=== PATIENT | male | born 2000 | race American Indian/Alaskan Native ===

== ENCOUNTER 2019-05-03 15:38 | Emergency (ER) | payer SELFPAY ==
--- NOTE | 2019-05-03 16:14 | Emergency Department Report ---
Blank Doc - Documentation Documentation: This is a 24-year-old male that presents with dizziness and tingling and numbn ess sensation to bilateral upper and lower ext. Stated had some chest pain prior to these symptoms. This initial assessment/diagnostic orders/clinical plan/treatment(s) is/are subject to change based on patient's health status, clinical progression and re- assessment by fellow clinical providers in the ED. Further treatment and workup at subsequent clinical providers discretion. Patient/guardians urged not to elope from the ED as their condition may be serious if not clinically assessed and managed. Initial orders include: 1- Patient sent to [facility] for further evaluation and treatment 2- labs 3- EKG 4- CXR
[2019-05-03 16:35] LABS: Basophils % (Auto) 0.6 % (0.0-1.8); Eosinophils # (Auto) 0.1 K/mm3 (0.0-0.4); Hematocrit 48.1 % (35.5-45.6); Hemoglobin 16.1 gm/dl (11.8-15.2); Lymphocytes # (Auto) 1.3 K/mm3 (1.2-5.4); Lymphocytes % (Auto) 21.5 % (13.4-35.0); Mean Corpuscular HGB Conc 34 % (32-34); Mean Corpuscular Volume 82 fl (84-94); Monocytes # (Auto) 0.5 K/mm3 (0.0-0.8); Monocytes % (Auto) 8.9 % (0.0-7.3); Platelet Count 203 K/mm3 (140-440); Red Blood Count 5.84 M/mm3 (3.65-5.03); Red Cell Distribution Width 15.2 % (13.2-15.2)
[2019-05-03 16:44] LABS: INR 1.11 (0.87-1.13); Partial Thromboplastin Time 25.1 Sec. (24.2-36.6)
[2019-05-03 16:51] LABS: BUN/Creatinine Ratio 8; Blood Urea Nitrogen 8 mg/dL (9-20); Calcium 9.8 mg/dL (8.4-10.2); Hemolysis Index 26
--- NOTE | 2019-05-03 17:15 | XRay Report ---
CHEST 2 VIEWS INDICATION / CLINICAL INFORMATION: Chest Pain. COMPARISON: None available. FINDINGS: SUPPORT DEVICES: None. HEART / MEDIASTINUM: No significant abnormality. LUNGS / PLEURA: No significant pulmonary or pleural abnormality. No pneumothorax. ADDITIONAL FINDINGS: No significant additional findings. IMPRESSION: 1. No acute findings. Signer Name: Elmer Robertson MD Signed: 05/03/2019 4:11 PM Workstation Name: [id number]
[2019-05-03] MEDS ORDERED: PEPCID PO ONE (17:37)
[2019-05-03] MEDS ORDERED: CARAFATE PO ONE (17:37)
[2019-05-03] MEDS ORDERED: NACL 0.9% 1000 ML 1,000 ML IV ONE (17:38)
--- NOTE | 2019-05-03 17:38 | Emergency Department Report ---
ED General Adult HPI - General Chief complaint: Neuro Symptoms/Deficit Stated complaint: POSS STROKE LIKE SYMPTOMS Time Seen by Provider: 05/03/19 16:12 Source: patient, RN notes reviewed Mode of arrival: Ambulatory Limitations: No Limitations - History of Present Illness Initial comments: This is a pleasant 19-year-old gentleman. The patient is not known to this provider previously. The patient states he does not have a primary care doctor, and he denies chronic medical conditions. The patient presents to the emergency room today with multiple complaints. First complaint is nonspecific electrical feeling. He describes a sensation of electricity on his anterior and bilateral chest," tingling an electricity", on his bilateral palms, and bilateral anterior tibial regions. This is an intermittent sensation, is now resolved, his pain was, and it does not have exacerbating or relieving factors. Second complaint is chest pressure. The chest pressure is central. It does not radiate to the back, arms or neck. There is no vomiting. There is no diaphoresis. There is no recent aspirin ingestion, and the patient indicates no pulmonary embolus or DVT risk factors. Family reports that they have no history of pulmonary embolism or DVT, or cardiac disease. The patient denies other complaints. On review of systems, he did endorse nonsp ecific shortness of breath, which he has difficulty describing. However, he specifically denied syncope, he denied exertional shortness of breath -: Sudden Location: chest, left, right, upper extremity, lower extremity Radiation: non-radiation, other Quality: other Consistency: other Improves with: other Worsens with: other Associated Symptoms: chest pain, shortness of breath, other - Related Data Previous Rx's Medication Instructions Recorded Last Taken Type Famotidine [Pepcid] 20 mg PO QDAY #30 tablet 05/03/19 Unknown Rx Ibuprofen [Motrin] 600 mg PO Q8H PRN #30 tablet 05/03/19 Unknown Rx Allergies Allergy/AdvReac Type Severity Reaction Status Date / Time No Known Allergies Allergy Unverified 05/03/19 15:39 ED Review of Systems ROS: Stated complaint: POSS STROKE LIKE SYMPTOMS Other details as noted in HPI Constitutional: denies: fever Eyes: denies: eye discharge ENT: denies: epistaxis Respiratory: shortness of breath. denies: cough Cardiovascular: chest pain Gastrointestinal: denies: abdominal pain, nausea, vomiting Genitourinary: denies: dysuria Musculoskeletal: denies: back pain Skin: denies: lesions Neurological: denies: headache, weakness, paresthesias, confusion, abnormal gait, vertigo Psychiatric: anxiety ED Past Medical Hx - Past Medical History Previous Medical History?: No Hx Hypertension: No - Surgical History Past Surgical History?: No - Social History Smoking Status: Never Smoker Substance Use Type: None - Medications Home Medications: Home Medications Medication Instructions Recorded Confirmed Last Taken Type Famotidine [Pepcid] 20 mg PO QDAY #30 tablet 05/03/19 Unknown Rx Ibuprofen [Motrin] 600 mg PO Q8H PRN #30 tablet 05/03/19 Unknown Rx ED Physical Exam - General Limitations: No Limitations General appearance: alert, anxious, obese - Head Head exam: Present: atraumatic, normocephalic - Eye Eye exam: Present: normal appearance, PERRL, EOMI. Absent: nystagmus - ENT ENT exam: Present: normal exam, normal orophraynx, mucous membranes moist, normal external ear exam - Neck Neck exam: Present: normal inspection, full ROM. Absent: tenderness, m eningismus - Respiratory Respiratory exam: Present: normal lung sounds bilaterally. Absent: respiratory distress, wheezes, rales, rhonchi, stridor, chest wall tenderness - Cardiovascular Cardiovascular Exam: Present: regular rate, normal rhythm, normal heart sounds. Absent: bradycardia, tachycardia, irregular rhythm, systolic murmur, diastolic murmur, rubs, gallop - GI/Abdominal GI/Abdominal exam: Present: soft. Absent: distended, tenderness, guarding, rebound, rigid, pulsatile mass - Rectal Rectal exam: Present: deferred - Extremities Exam Extremities exam: Present: normal inspection, full ROM, other (2+ pulses noted in the bilateral upper, lower extremities. Compartments soft. No long bony tenderness. The pelvis is stable.). Absent: pedal edema, joint swelling, calf tenderness - Back Exam Back exam: Present: normal inspection, full ROM. Absent: tenderness, CVA tenderness (R), CVA tenderness (L), paraspinal tenderness, vertebral tenderness - Neurological Exam Neurological exam: Present: alert (there is no past-pointing. There is normal heel to gan. There is negative pronator drift. There is normal gait. There is normal tandem gait. There is a negative Romberg examination), oriented X3, normal gait, other (Extraocular movements intact. Tongue midline. No facial droop. Facial sensation intact to light touch in the V1, V2, V3 distribution bilaterally. 5 and 5 strength in 4 extremities.. Sensation is intact to light touch in 4 extremities.). Absent: motor sensory deficit - Psychiatric Psychiatric exam: Present: anxious - Skin Skin exam: Present: warm, dry, intact, normal color. Absent: rash ED Course Vital Signs 05/03/19 05/03/19 05/03/19 15:00 16:13 17:33 Temperature 97.6 F 98.8 F Pulse Rate 64 106 H Respiratory 16 18 Rate Blood Pressure 147/66 149/93 Blood Pressure 146/92 [Right] O2 Sat by Pulse 100 100 Oximetry 05/03/19 05/03/19 05/03/19 17:50 18:00 18:16 Temperature Pulse Rate 103 H 108 H 93 H Respiratory 13 18 18 Rate Blood Pressure 140/92 140/92 144/87 Blood Pressure [Right] O2 Sat by Pulse 99 100 99 Oximetry 05/03/19 05/03/19 05/03/19 18:28 18:30 18:46 Temperature 97.4 F L Pulse Rate 92 H 87 85 Respiratory 18 14 16 Rate Blood Pressure 164/86 144/77 Blood Pressure 164/86 [Right] O2 Sat by Pulse 98 99 99 Oximetry 05/03/19 05/03/19 05/03/19 19:00 19:16 19:30 Temperature Pulse Rate 88 91 H 87 Respiratory 13 11 L 14 Rate Blood Pressure 144/77 144/87 129/72 Blood Pressure [Right] O2 Sat by Pulse 99 99 99 Oximetry 05/03/19 05/03/19 05/03/19 19:46 20:00 20:16 Temperature Pulse Rate 102 H 69 71 Respiratory 13 13 12 Rate Blood Pressure 129/72 129/72 130/67 Blood Pressure [Right] O2 Sat by Pulse 99 99 99 Oximetry 05/03/19 05/03/19 05/03/19 20:40 20:46 21:00 Temperature Pulse Rate 105 H Respiratory 12 10 L 15 Rate Blood Pressure Blood Pressure [Right] O2 Sat by Pulse 99 98 99 Oximetry 05/03/19 21:46 Temperature Pulse Rate 77 Respiratory 10 L Rate Blood Pressure 130/67 Blood Pressure [Right] O2 Sat by Pulse Oximetry - Reevaluation(s) Reevaluation #2: 05/03/19 18:22 Differential diagnosis, including not limited to: Peripheral neuropathy, multiple sclerosis, GERD, gastritis, hiatal hernia, pneumonia, acute coronary syndrome, pulmonary embolus and Assessment and plan: 1-year-old gentleman with multiple complaints. His neurologic endorsement of tingling and electrical feeling in his chest, hands and shins is not reproduced on my examination. He walks with a steady gait, and has an NIH score of 0, and a GCS of 15. His anatomic distribution of symptoms is not consistent with a stroke or acute ischemic event. Does not re quire emergent neuro imaging at this time. Patient and family counseled appropriately, he can follow up with outpatient primary care doctor or neurologist if his nonspecific sensory symptoms persist. Chest pressure is clinically unlikely to be acute coronary syndrome, he is low risk by the BHUPINDER score, low risk by heart score, endorses no pulmonary embolus or DVT risk factors, and he is low risk by well's criteria Initially tachycardic when I evaluated him, he appears to be quite anxious. A d-dimer is sent to risk stratify patient. However, if negative for pulmonary embolism, I would consider the patient's medically suitable to follow up with an outpatient senior programmer. 05/03/19 19:22 Reevaluation #3: 05/03/19 19:19 care will be transferred to oncoming ER physician, Dr. Mireya Anton, to follow up on cta chest and if negative, d/c Reevaluation #4: 05/04/19 15:29 cta chest negative ED Medical Decision Making - Lab Data Result diagrams: 05/03/19 16:16 05/03/19 16:16 Vital Signs 05/03/19 05/03/19 16:13 17:33 Temperature 97.6 F 98.8 F Pulse Rate 64 106 H Respiratory 16 18 Rate Blood Pressure 149/93 Blood Pressure 146/92 [Right] O2 Sat by Pulse 100 100 Oximetry Lab Results 05/03/19 05/03/19 05/03/19 Range/Units 16:16 16:16 16:16 WBC 5.8 (4.5-11.0) K/mm3 RBC 5.84 H (3.65-5.03) M/mm3 Hgb 16.1 H (11.8-15.2) gm/dl Hct 48.1 H (35.5-45.6) % MCV 82 L (84-94) fl MCH 28 (28-32) pg MCHC 34 (32-34) % RDW 15.2 (13.2-15.2) % Plt Count 203 (140-440) K/mm3 Lymph % (Auto) 21.5 (13.4-35.0) % [facility] % (Auto) 8.9 H (0.0-7.3) % Eos % (Auto) 1.0 (0.0-4.3) % Baso % (Auto) 0.6 (0.0-1.8) % Lymph # 1.3 (1.2-5.4) K/mm3 [facility] # 0.5 (0.0-0.8) K/mm3 Eos # 0.1 (0.0-0.4) K/mm3 Baso # 0.0 (0.0-0.1) K/mm3 Seg Neutrophils % 68.0 (40.0-70.0) % Seg Neutrophils # 4.0 (1.8-7.7) K/mm3 PT 14.0 (12.2-14.9) Sec. INR 1.11 (0.87-1.13) APTT 25.1 (24.2-36.6) Sec. Sodium 138 (137-145) mmol/L Potassium 4.5 (3.6-5.0) mmol/L Chloride 97.6 L (98-107) mmol/L Carbon Dioxide 22 (22-30) mmol/L Anion Gap 23 mmol/L BUN 8 L (9-20) mg/dL Creatinine 1.0 (0.8-1.5) mg/dL Estimated GFR > 60 ml/min BUN/Creatinine Ratio 8 % Glucose 93 (75-100) mg/dL Calcium 9.8 (8.4-10.2) mg/dL Troponin T < 0.010 (0.00-0.029) ng/mL - EKG Data -: EKG Interpreted by Wi EKG shows normal: sinus rhythm Rate: normal - EKG Data When compared to previous EKG there are: previous EKG unavailable 05/03/19 18:25 EKG #1 demonstrates a normal sinus rhythm, 78 beats minute, normal axis, normal intervals, borderline atrial enlargement, not consistent with ST elevation gayle cardial infarction, EKG #2 appears to be unchanged from prior, borderline high left ventricular voltage. Neither EKG is morphologically consistent with ST elevation myocardial infarct - Radiology Data Radiology results: report reviewed, image reviewed X-ray of the chest is negative for acute disease. Critical care attestation.: If time is entered above; I have spent that time in minutes in the direct care of this critically ill patient, excluding procedure time. ED Disposition Clinical Impression: Extremity numbness, History of chest pain Disposition: TO HOME OR SELFCARE Is pt being admited?: No Does the pt Need Aspirin: No Condition: Stable Additional Instructions: Avoid consumption of heavy, spicy foods. Take the medications as needed/directed. Follow up with a senior programmer within the next 3-5 days for elevated blood pressure, and complaint of chest pressure and shortness of breath. Drink 4-6 cups of water per day for the next week. Follow up with the primary care doctor or neurologist within the next 7-10 days for complaint of electric numbness to chest, hands, and lower extremities. Return to the emergency room right away with new, worsening or different symptoms not present on the initial emergency room evaluation. Prescriptions: Ibuprofen [Motrin] 600 mg PO Q8H PRN #30 tablet PRN Reason: Pain Famotidine [Pepcid] 20 mg PO QDAY #30 tablet Referrals: MARTELL BISWAS MD [Primary Care Provider] - 3-5 Days [facility] [Provider Group] - 3-5 Days [facility] [Provider Group] - 3-5 Days
[2019-05-03 21:08] VITALS: BP 130/67
--- NOTE | 2019-05-03 21:21 | Cat Scan Report ---
CTA CHEST WITH IV CONTRAST INDICATION: Chest pain, dyspnea. TECHNIQUE: Axial CT images were obtained through the chest after injection of 100 cc Omnipaque 350 IV contrast. 3 plane MIP reconstructions were produced. All CT scans at this location are performed using CT dose reduction for ALARA by means of automated exposure control. COMPARISON: None available. FINDINGS: Pulmonary Arteries: No pulmonary emboli. Lungs: No significant abnormality. Trachea and Bronchi: No significant abnormality. Heart and Pericardium: No significant abnormality. Vasculature: No significant abnormality. Lymphatics: No lymphadenopathy. Additional Findings: None. Upper Abdomen: No acute findings. Skeletal Structures: No significant osseous abnormality. IMPRESSION: 1. No CT evidence for pulmonary embolism. 2. No acute findings. Signer Name: Elmer Robertson MD Signed: 05/03/2019 8:16 PM Workstation Name: [id number]
== END 2019-05-03 22:03 | disposition home or self-care (01) ==
LOC: EDBD 15:38 → ED 15:38
DX: R07.89 Other chest pain (principal); F41.9 Anxiety disorder, unspecified; Z79.1 Long term (current) use of non-steroidal anti-inflammatories (NSAID)
CPT/HCPCS: 36415; 71046; 71275; 80048; 84484; 85025; 85379; 85610; 85730; 93005; 93010; 99285; J7030; Q9967